=== PATIENT | male | born 1990 | race Caucasian/White ===

== ENCOUNTER 2017-02-21 20:46 | Emergency (ER) | payer OTHER ==
[~2017-02-21] VITALS: Ht 170.2 cm; Wt 63.5 kg
--- NOTE | 2017-02-21 20:46 | NUR ---
BIBA TO ER OF1
[2017-02-21 20:53] VITALS: BP 119/74
[2017-02-21] MEDS ORDERED: LORazepam 1 MG TAB PO ONE (21:00)
--- NOTE | 2017-02-21 21:00 | NUR ---
Patient being evaluated by at bedside.
--- NOTE | 2017-02-21 21:00 | NUR ---
26Y/M PT. LUZ MARINAA TO ED WITH C/O AXIETY. PT. S/P SMOKING MARIJUANA 3 HOURS AGO, PATIENT VERY ANXIOUS. AAOX 4, AMBULATORY WITH STEADY GAIT. RESPIRATIONS ROOM AIR, EVEN AND UNLABORED. EPISODE OF ANXIETY. NO C/O SOB, CP AT THIS TIME. VSS, ER MD MADE AWARE OF PT. STATUS.
--- NOTE | 2017-02-21 22:55 | NUR ---
Patient discharged with v/s stable. Written and verbal after care instructions given and explained. Patient verbalized understanding. Ambulatory with steady gait. All questions addressed prior to discharge. Advised to follow up with PMD.
[2017-02-21 23:00] VITALS: BP 122/72
--- NOTE | 2017-02-22 02:28 | NUR ---
Note undone in EDM - 02/22/17 at 0231 by [facility] 26Y/M PT. BIBA TO ED WITH C/O AXIETY. PT. S/P SMOKING MARIJUANA 3 HOURS AGO, PATIENT VERY ANXIOUS. AAOX 4, AMBULATORY WITH STEADY GAIT. RESPIRATIONS ROOM AIR, EVEN AND UNLABORED. EPISODE OF ANXIETY. NO C/O SOB, CP AT THIS TIME. VSS, ER MADE AWARE OF PT. STATUS.
== END 2017-02-21 22:55 | disposition home or self-care (01) ==
LOC: MED 20:46
DX: F12.10 Cannabis abuse, uncomplicated (principal)
CPT/HCPCS: 71010; 93005; 99284